=== PATIENT | male | born 1970 | race Caucasian/White ===

== ENCOUNTER → 2018-06-27 06:00 | Outpatient (CLI) | payer OTHER | END | disposition home or self-care (01) | LOC: ADM 06-26 08:15 → LAB 06:00 → ADM 08:00 → EDSTATUS 07-03 08:00 → EDSEX 07-03 08:00 → CIR.AMB 07-03 08:00 | DX: D12.9 Benign neoplasm of anus and anal canal (principal); K60.0 Acute anal fissure; K92.1 Melena; Z01.818 Encounter for other preprocedural examination ==

== ENCOUNTER 2018-07-04 08:50 | Outpatient (CLI) | payer OTHER | END 2018-07-04 11:32 | disposition home or self-care (01) | LOC: LAB 08:50 | DX: D69.49 Other primary thrombocytopenia (principal); Z11.4 Encounter for screening for human immunodeficiency virus [HIV] ==